=== PATIENT | female | born 1985 | race Caucasian/White ===

== ENCOUNTER 2020-09-16 15:12 | Outpatient (CLI) | payer BC ==
[2020-09-16 18:49] LABS: BHCG - Serum Negative (NEGATIVE); Pregs Control Background? CLEAR/WHITE (CLR/WHITE); Pregs Control Bar Appear? YES (CONTROL BAR)
[2020-09-17 02:32] LABS: SARS-CoV-2 PCR by NAA Not Detected (NotDetected)
== END 2020-09-16 15:13 | disposition home or self-care (01) ==
LOC: CSHLAB 15:12
PROVIDERS: ATTEND Otolaryngology Plastic Surgery within the Head & Neck
DX: Z01.812 Encounter for preprocedural laboratory examination (principal); Z20.822 Contact with and (suspected) exposure to COVID-19; E04.9 Nontoxic goiter, unspecified
CPT/HCPCS: 84703; 85014; 87635; U0003; U0005

== ENCOUNTER 2020-09-21 08:31 | Observation (INO) | payer BC ==
[2020-09-17 09:49] VITALS: BMI 36.9
[2020-09-21] MEDS ORDERED: Lidocaine 1% MPF 2 ML VIAL ONE (09:10)
[2020-09-21] MEDS ORDERED: Lidocaine 1% w/Epinephrine 1:100K 20 ML VIAL ONE (10:04)
[2020-09-21] MEDS ORDERED: Scopolamine 1.5 mg/72 hour Patch ONE (10:18)
[2020-09-21] MEDS ORDERED: Midazolam HCl 2 mg/2 ml Vial ONE (10:18)
[2020-09-21] MEDS ORDERED: Famotidine/PF 20 mg/2ml Vial ONE (10:18)
[2020-09-21] MEDS ORDERED: PROPOFOL 20 ML ONE ×2 (10:24→10:54)
[2020-09-21] MEDS ORDERED: Lidocaine 1% PF 5 ML VIAL ONE (10:24)
[2020-09-21] MEDS ORDERED: Fentanyl 100 MCG/2 ML VIAL ONE ×4 (10:24→12:52)
[2020-09-21] MEDS ORDERED: HYDROcodone/Acetaminophen 5/325 mg Tablet PO PRN (10:36)
[2020-09-21] MEDS ORDERED: Ondansetron PF 4 MG/2 ML Vial IVP PRN (10:36)
[2020-09-21] MEDS ORDERED: Acetaminophen 325 MG TAB PO PRN (10:36)
[2020-09-21] MEDS ORDERED: Ondansetron PF 4 MG/2 ML Vial ONE (11:16)
[2020-09-21] MEDS ORDERED: diphenhydrAMINE 50 MG/ML VIAL ONE (11:16)
[2020-09-21] MEDS ORDERED: Dexamethasone 4 mg/ml Vial ONE (11:16)
[2020-09-21] MEDS: HYDROcodone/Acetaminophen 7.5/325 mg Tablet PO PRN ×2 (15:20→22:48)
[2020-09-21] MEDS: Calcium Carbonate 600 MG TAB PO SCH ×2 (15:20→20:39)
[2020-09-21] MEDS: Calcitriol 0.25 MCG CAP PO SCH (20:39)
[2020-09-22] MEDS ORDERED: Levothyroxine Sodium 125 MCG TAB PO SCH (06:00)
[2020-09-22 07:37] VITALS: BP 121/63; TEMP 97.6
[2020-09-22] MEDS: Calcitriol 0.25 MCG CAP PO SCH (08:25)
[2020-09-22] MEDS: Calcium Carbonate 600 MG TAB PO SCH (08:25)
== END 2020-09-22 09:47 | disposition home or self-care (01) ==
LOC: CSHSDC 08:31 → CSHTELE 11:06
PROVIDERS: ADMIT Otolaryngology Plastic Surgery within the Head & Neck; ATTEND Otolaryngology Plastic Surgery within the Head & Neck
PROC: 0GTK0ZZ Resection of Thyroid Gland, Open Approach (ICD-10-PCS; principal; 2020-09-21)
PROC: 0GBJ0ZZ Excision of Thyroid Gland Isthmus, Open Approach (ICD-10-PCS; 2020-09-21)
DX: E04.9 Nontoxic goiter, unspecified (principal); E06.3 Autoimmune thyroiditis; R49.9 Unspecified voice and resonance disorder; J45.909 Unspecified asthma, uncomplicated; E03.9 Hypothyroidism, unspecified; Z79.899 Other long term (current) drug therapy; Z88.0 Allergy status to penicillin; Z88.1 Allergy status to other antibiotic agents
CPT/HCPCS: 36415; 82310; 83970; 88305; 88307; 88331; 88334; G0378; J1100; J1200; J2250; J2405; J2704; J3010; S0028